=== PATIENT | female | born 1965 | race Hispanic/Latino ===

== ENCOUNTER 2019-02-09 15:31 | Outpatient (CLI) | payer OTHER | END 2019-02-09 15:32 | disposition home or self-care (01) | LOC: LABHHL 15:31 | PROVIDERS: ATTEND Surgery | DX: S80.852A Superficial foreign body, left lower leg, initial encounter (principal); X58.XXXA Exposure to other specified factors, initial encounter; Y93.89 Activity, other specified; Y99.8 Other external cause status; Y92.89 Other specified places as the place of occurrence of the external cause | CPT/HCPCS: 88300; 88302 ==